=== PATIENT | male | born 1955 | race African-American/Black ===

== ENCOUNTER 2021-08-05 10:35 | Outpatient (CLI) | payer MEDICARE, MEDICAID, SELFPAY ==
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
== END 2021-08-05 10:36 | disposition home or self-care (01) ==
LOC: ANHNEURO 10:37
PROVIDERS: Visit Provider Internal Medicine Infectious Disease
DX: G62.9 Polyneuropathy, unspecified (principal); G56.23 Lesion of ulnar nerve, bilateral upper limbs
CPT/HCPCS: 95886; 95911